=== PATIENT | male | born 1980 | race Caucasian/White ===

== ENCOUNTER 2019-08-30 00:40 | Emergency (ER) | payer OTHER, MEDICAID, SELFPAY ==
[2019-08-30 00:57] VITALS: BP 146/104; PULSE 90; RESP 16; TEMP 37; O2SAT 100; BMI 22.4
--- NOTE | 2019-08-30 01:07 | ED_ITS ---
HPI - Back Pain/Injury General Chief Complaint: Back Pain/Injury Stated Complaint: Back and Leg pain/ Writhing in pain Time Seen by Provider: 08/30/19 00:47 Source: patient and EMS Mode of arrival: EMS Limitations: no limitations History of Present Illness HPI Narrative: 39-year-old male brought in by EMS for evaluation of back pain and groin pain. Patient states that the back pain started soon after he ?pulled? his groin. He states he was walking in the bathroom reaching for a paper towel when his left leg went forward. He started having pain in the left side of his groin and then very shortly after starting in bilateral back pain. EMS was called. He did receive 50 micro g of fentanyl prior to arrival. Upon arrival patient was complaining of bilateral lower back pain. No urinary symptoms. Related Data Allergies Allergy/AdvReac Type Severity Reaction Status Date / Time No Known Drug Allergies Allergy Verified 08/30/19 01:03 Review of Systems Constitutional Constitutional: Denies fever(s) Cardiovascular Cardiovascular: Denies chest pain and Denies dyspnea Respiratory Respiratory: Denies dyspnea Gastrointestinal Gastrointestinal: Denies abdominal pain Genitourinary Comments: Left-sided going pain Musculoskeletal Musculoskeletal: Reports back pain Integumentary/Breasts Skin/Breast: Denies rash Neurologic Neurologic: Denies behavioral changes Psychiatric Psychiatric: Denies behavioral changes Hematologic/Lymphatic Hematologic/Lymphatic: Denies easy bleeding and Denies easy bruising Patient History Medical History Drug abuse (Acute) Social History Smoking Status: Current every day smoker Smoking Status: Current every day smoker alcohol intake frequency: a few times a month Substance Use Type: heroin and methamphetamine Exam Initial Vital Signs Initial Vital Signs: Vital Signs Temperature 98.6 F 08/30/19 00:57 Pulse Rate 90 08/30/19 00:57 Respiratory Rate 16 08/30/19 00:57 Blood Pressure 146/104 H 08/30/19 00:57 Pulse Oximetry 100 08/30/19 00:57 Const General: cooperative and comfortable Orientation: alert and awake HENMT Head: normal to inspection and normocephalic Resp Effort & Inspection: normal respiratory effort Cardio Rate: regular rate Skin Lesions: no lesions Rashes: no rashes Neuro General: alert and awake Speech: speech normal Extrem General: normal to inspection and capillary refill normal Course Orders Ordered: Discontinued Medications Ketorolac Tromethamine (Toradol) 30 mg IV NOW ONE Stop: 08/30/19 01:08 Last Admin: 08/30/19 01:14 Dose: 30 mg Documented by: OTTO Vital Signs Vital signs: Vital Signs - 8 hr 08/30/19 00:57 Temperature 98.6 F Pulse Rate 90 Respiratory Rate 16 Blood Pressure 146/104 H Pulse Oximetry 100 MDM - Back Pain/Injury MDM Narrative Medical decision making narrative: Patient has only subjective findings. He did receive Toradol here in the emergency department seemed to improve his symptoms. I do suspect musculoskeletal. Will hold on further workup for now. No indication for radiologic studies. He was given return precautions and follow- up instructions. He expressed understanding and agreement plan. Discharge Plan Departure Patient Disposition: Home Clinical Impression: Strain of lumbar region Qualifiers: Encounter type: initial encounter Qualified Code(s): S39.012A - Strain of muscle, fascia and tendon of lower back, initial encounter Instructions: DI for Back Strain or Sprain Activity Restrictions/Additional Instructions: Recommend that you continue to take anti-inflammatories such as Motrin and or Naprosyn. Contact her primary provider for follow-up.
[2019-08-30] MEDS: KETOROLAC 60 MG/2 ML VIAL 30 MG IV (01:14)
[2019-08-30 02:06] VITALS: BP 120/81; PULSE 77; RESP 18; O2SAT 99
== END 2019-08-30 02:08 | disposition home or self-care (01) ==
PROVIDERS: Emergency Provider Emergency Medicine
DX: S39.012A Strain of muscle, fascia and tendon of lower back, initial encounter (principal)
CPT/HCPCS: 96374; 99284; J1885